=== PATIENT | female | born 1980 | race Asian ===

== ENCOUNTER 2020-12-24 05:48 | Day surgery (SDC) | payer OTHER, SELFPAY ==
[~2020-12-24] VITALS: Ht 160 cm; Wt 50.3 kg
[2020-12-24] MEDS ORDERED: fentaNYL citrate 0.05 MG/ML VIAL ONE (07:29)
[2020-12-24] MEDS ORDERED: diphenhydrAMINE 50 MG/ML VIAL ONE (07:30)
[2020-12-24] MEDS ORDERED: MIDAZOLAM 2 MG/2 ML VIAL ONE (07:30)
[2020-12-24] MEDS ORDERED: LIDOCAINE VISCOUS 2% 20 ML UDC ONE (07:43)
[2020-12-24] MEDS ORDERED: LIDOCAINE VISCOUS 2% 20 ML UDC PO ONE (08:40)
== END 2020-12-24 08:30 | disposition home or self-care (01) ==
LOC: MDS 05:48 → MMU 05:51 → MDS 08:30
PROVIDERS: ATTEND Internal Medicine Gastroenterology
DX: K30 Functional dyspepsia (principal); K29.70 Gastritis, unspecified, without bleeding; Z20.828 Contact with and (suspected) exposure to other viral communicable diseases
CPT/HCPCS: 36415; 43239; 86677; U0003; J1200; J2250; J3010